=== PATIENT | male | born 1955 | race Caucasian/White ===

== ENCOUNTER → 2017-03-25 | Outpatient (CLI) | payer BC ==
[~2017-03-25] MED LIST: ASPIR 8181 MG PO; CIPROFLOXACIN500 M1 PO; CO Q-10100 MG PO; CRESTOR10 MG PO; EFFIENT10 MG PO; FLAGYL500 MG PO; HYDROCHLOROTH12.5 M1 PO; LEVOTHYROXIN0.137 M1 PO; NITROGLYCERIN0.4 MG SUBLING; VITAMIN D1000 UNI1 PO; ZOFRAN ODT8 MG PO
--- NOTE | ~2017-03-25 | 2DMMODE ---
[facility] [email or web address] [place] [address] 2 D/M-MODE ECHOCARDIOGRAM Name: AMBER JOHNSON Room #: [facility]#: [id number] Admission: 03/25/17 Attend Phys: Melvin Simon MD Discharge: Date of : 59 Date of Service: 03/25/17 1553 Report #: [id number] THIS REPORT FOR: //name// APPROVED REPORT Study performed: 03/25/2017 15:22:57 EXAM: Comprehensive 2D, Doppler, and color-flow Echocardiogram Patient Location: Out-Patient Blood Pressure: 128/77 mmHg HR: 60 bpm Rhythm: NSR Other Information Study Quality: Adequate Indications CAD Hx: [place], stent, HTN, HLP 2D Dimensions RVDd: 39.41 mm LVEF(%): 69.86 (>50%) IVSd: 9.89 (7-11mm) LVOT Diam: 21.14 (18-24mm) LVDd: 38.72 mm PWd: 9.06 (7-11mm) Ascending Ao: 27.26 (22-36mm) LVDs: 23.69 (25-40mm) Aortic Root: 30.85 mm Mendoza's LVEF: 69.86 % Volumes Left Atrial Volume (Systole) Single Plane 4CH: 46.42 mL Single Plane 2CH: 63.94 mL Aortic Valve AoV Peak Andrew.: 1.82 m/s AO Peak Gr.: 13.21 mmHg LVOT Max P.38 mmHg LVOT Max V: 1.45 m/s YAMINI Vmax: 2.79 cm2 Mitral Valve E/A Ratio: 1.3 MV Decel. Time: 206.77 ms [facility] [address] [place] [address] 2 D/M-MODE ECHOCARDIOGRAM Name: AMBER JOHNSON Room #: [facility]#: [id number] Admission: 03/25/17 Attend Phys: Melvin Simon MD Discharge: Date of : 59 Date of Service: 03/25/17 1553 Report #: [id number] MV E Max Andrew.: 0.99 m/s MV A Andrew.: 0.77 m/s MV PHT: 59.96 ms IVRT: 59.98 ms Pulmonary Valve PV Peak Andrew.: 1.08 m/s PV Peak Gr.: 4.65 mmHg Pulmonary Vein P Vein S: 68.3 m/s P Vein A: 30.42 m/s P Vein D: 55.4 m/s P Vein A Dur.: 143.0 msec Tricuspid Valve RAP Estimate: 5.00 mmHg Left Ventricle The left ventricle is normal size. There is normal LV segmental wall motion. There is normal left ventricular wall thickness. The left ventricular systolic function is normal. LVEF is 60%. The left ventricular diastolic function is normal. Right Ventricle The right ventricle is normal size. The right ventricular systolic function is normal. Atria The left atrium size is normal. The right atrium size is normal. Aortic Valve The Aortic valve is mildly sclerotic. Trace aortic regurgitation. There is no aortic valvular stenosis. Mitral Valve The mitral valve is normal in structure. Mild mitral annular calcification. Trace mitral regurgitation. No evidence of mitral valve stenosis. Tricuspid Valve The tricuspid valve is normal in structure. There is no tricuspid valve regurgitation noted. Pulmonic Valve The pulmonary valve is normal in structure. There is no pulmonic valvular regurgitation. [facility] [email or web address] [address] 2 D/M-MODE ECHOCARDIOGRAM Name: AMBER JOHNSON Room #: [facility]#: [id number] Admission: 03/25/17 Attend Phys: Melvin Simon MD Discharge: Date of : 59 Date of Service: 03/25/17 1553 Report #: [id number] Great Vessels The aortic root is normal in size. The ascending aorta is normal in size. IVC is normal in size and collapses >50% with inspiration. Pericardium There is no pericardial effusion. <Conclusion> The left ventricle is normal size. The left ventricular systolic function is normal. The right ventricle is normal size. The left atrium size is normal. The right atrium size is normal. There is no aortic valvular stenosis. The mitral valve is normal in structure. Mild mitral annular calcification. Trace mitral regurgitation. <ELECTRONICALLY SIGNED> By: Melvin Simon MD 03/25/17 1553 1553 1553 Melvin Simon MD /INF
== END ==
LOC: CV 02-07 07:03
DX: I25.10 Atherosclerotic heart disease of native coronary artery without angina pectoris (principal)

== ENCOUNTER → 2019-07-09 | Outpatient (CLI) | payer BC ==
--- NOTE | 2019-07-09 11:23 | 2DMMODE ---
[facility] [place] [address] 2 D/M-MODE ECHOCARDIOGRAM Name: AMBER JOHNSON Room #: [facility]#: [id number] Admission: 07/09/19 Attend Phys: Melvin Simon MD Discharge: Date of : 59 Date of Service: 07/09/19 1122 Report #: [id number] THIS REPORT FOR: //name// APPROVED REPORT Study performed: 07/09/2019 10:15:02 EXAM: Comprehensive 2D, Doppler, and color-flow Echocardiogram Patient Location: Out-Patient Status: routine BSA: 2.20 HR: 53 bpm BP: 128/72 mmHg Rhythm: NSR Other Information Study Quality: Adequate Indications CAD Hx: [place], stents, HTN, HLP. 2D Dimensions RVDd: 41.24 mm IVSd: 11.17 (7-11mm) LVOT Diam: 20.79 (18-24mm) LVDd: 51.95 mm PWd: 8.41 (7-11mm) Ascending Ao: 30.76 (22-36mm) LVDs: 35.20 (25-40mm) Aortic Root: 31.44 mm Volumes Left Atrial Volume (Systole) Single Plane 4CH: 47.68 mL Single Plane 2CH: 67.68 mL LA ESV Index: 28.00 mL/m2 Aortic Valve AoV Peak Andrew.: 1.84 m/s AO Peak Gr.: 13.61 mmHg LVOT Max P.68 mmHg AO Mean Gr.: 7.70 mmHg AO V2 Mean: 1.32 m/s LVOT Max V: 1.56 m/s AO V2 VTI: 40.24 cm YAMINI Vmax: 2.86 cm2 Mitral Valve [facility] [address] [place] [address] 2 D/M-MODE ECHOCARDIOGRAM Name: AMBER JOHNSON Room #: [facility]#: [id number] Admission: 07/09/19 Attend Phys: Melvin Simon MD Discharge: Date of : 59 Date of Service: 07/09/19 1122 Report #: [id number] E/A Ratio: 1.6 MV Decel. Time: 193.43 ms MV E Max Andrew.: 1.07 m/s MV A Andrew.: 0.69 m/s MV PHT: 56.09 ms IVRT: 72.66 ms Pulmonary Valve PV Peak Andrew.: 0.98 m/s PV Peak Gr.: 3.86 mmHg Pulmonary Vein P Vein S: 0.78 m/s P Vein A: 0.28 m/s P Vein D: 0.67 m/s P Vein A Dur.: 129.2 msec P Vein S/D Ratio: 1.16 Tricuspid Valve TR Peak Andrew.: 2.25 m/s RAP Estimate: 5.00 mmHg TR Peak Gr.: 20.25 mmHg PA Pressure: 25.00 mmHg Left Ventricle The left ventricle is normal size. There is normal LV segmental wall motion. There is normal left ventricular wall thickness. Left ventricular systolic function is normal. LVEF is 60%. Right Ventricle The right ventricle is normal size. The right ventricular systolic function is normal. Atria The left atrium size is normal. The right atrium size is normal. Aortic Valve Aortic valve is trileaflet. Trace aortic regurgitation. There is no aortic valvular stenosis. Mitral Valve The mitral valve is normal in structure. Mild mitral annular calcification. Mild mitral regurgitation. No evidence of mitral valve stenosis. Tricuspid Valve The tricuspid valve is normal in structure. Trace tricuspid regurgitation. Estimated PAP is 25mmHg. [address] [address] 2 D/M-MODE ECHOCARDIOGRAM Name: AMBER JOHNSON Room #: [facility]#: [id number] Admission: 07/09/19 Attend Phys: Melvin Simon MD Discharge: Date of : 59 Date of Service: 07/09/19 1122 Report #: [id number] Pulmonic Valve The pulmonary valve is normal in structure. There is no pulmonic valvular regurgitation. Great Vessels The aortic root is normal in size. The ascending aorta is normal in size. IVC is normal in size and collapses >50% with inspiration. Pericardium There is no pericardial effusion. <Conclusion> The left ventricle is normal size. There is normal left ventricular wall thickness. Left ventricular systolic function is normal. The right ventricle is normal size. The left atrium size is normal. Trace aortic regurgitation. Mild mitral annular calcification. Mild mitral regurgitation. Trace tricuspid regurgitation. Estimated PAP is 25mmHg. <ELECTRONICALLY SIGNED> By: Melvin Simon MD 07/09/19 1122 21 21 Melvin Simon MD /INF
--- NOTE | 2019-07-09 11:48 | EXE ---
[facility] [place] [place] [address] STRESS ECHOCARDIOGRAM Name: AMBER JOHNSON Room #: REG [facility]#: [id number] Admission: 07/09/19 Attend Phys: Melvin Simon MD Discharge: Date of : 59 Date of Service: 07/09/19 1148 Report #: [id number] THIS REPORT FOR: //name// APPROVED REPORT Study performed: 07/09/2019 10:59:29 Exam: Stress Echocardiogram Indication: CAD Patient Location: Out-Patient Stress Nurse: Jes Mac RN Status: routine Ht: 5 ft 9 in HR: 54 bpm BP: 128/72 mmHg Rhythm: NSR Medical History Medical History: CAD s/p OR, stents Allergies: Sulfa Cardiac Risk Factors: HTN, Hyperlipidemia Procedure The patient underwent an Exercise Stress Test using the Harvinder Protocol. Blood pressure, heart rate, and EKG were monitored. An Echocardiogram was performed by vibration technician in four stages in quad fashion. At peak stress, four selected images were obtained and placed side by side with resting images for comparison. Stress Test Details Stress Test: Exercise stress testing was performed using a Harvinder protocol. HR Resting HR: 54 bpm Max Heart Rate (APMHR): 158 bpm Max HR Achieved: 162 bpm Target HR (85% APMHR): 134 bpm % of APMHR: 102 Recovery HR: 74 bpm HR response to stress: Normal HR response to stress BP Resting BP: 128/72 mmHg Max BP: 165/65 mmHg Recovery BP: 140/65 mmHg BP response to stress: Normal blood pressure response to stress. [facility] [address] [place] [address] STRESS ECHOCARDIOGRAM Name: AMBER JOHNSON Room #: REG [facility]#: [id number] Admission: 07/09/19 Attend Phys: Melvin Simon MD Discharge: Date of : 59 Date of Service: 07/09/19 1148 Report #: [id number] ECG Resting ECG: Sinus Rhythm Stress ECG: Sinus Rhythm, nonspecific ST-T abnormalities ST Change: Non-ischemic Clinical Reason for Termination: Completed protocol, fatigue Exercise duration: 7 min 8 sec Highest Stage Achieved: Stage 3: 3.4 mph at 14% grade. Exercise capacity: 9.8 METs Pre-Stress Echo The resting Echocardiogram showed normal left ventricular contractility with an estimated Ejection Fraction of about 60%. The resting echocardiogram demonstrated normal wall motion in all wall segments. No significant valvular abnormalities noted. Normal wall motion in all segments on baseline images. Post-Stress Echo The stress Echocardiogram showed normal left ventricular contractility with an estimated Ejection Fraction of about 65-70%. Normal augmentation of wall motion in all segments on post stress images. Clinical No clinical or ECG evidence for ischemia. Conclusion Clinical Response: Non-ischemic Exercise Capacity: Average Stress ECG Response: Non-ischemic Stress Echo Images: Non-ischemic The left ventricle is normal in size and wall thickness in both the rest and stress images. Other Information Study Quality: Adequate <Conclusion> The left ventricle is normal in size and wall thickness in both the rest and stress images. <ELECTRONICALLY SIGNED> By: Melvin Simon MD 07/09/19 1148 1148 1148 Melvin Simon MD /INF
== END ==
LOC: CV 05-18 08:48
DX: I34.0 Nonrheumatic mitral (valve) insufficiency (principal); I25.10 Atherosclerotic heart disease of native coronary artery without angina pectoris; I10 Essential (primary) hypertension; E78.5 Hyperlipidemia, unspecified; I25.2 Old myocardial infarction; Z95.5 Presence of coronary angioplasty implant and graft

== ENCOUNTER → 2020-02-09 | Outpatient (CLI) | payer BC ==
[~2020-02-09] VITALS: Ht 172.7 cm; Wt 106.6 kg
[~2020-02-09] MED LIST changes: +ASPIR-LOW81 MG PO; +CIALIS5 MG PO; +CO Q-10 100 MG1 EACH PO; -CO Q-10100 MG PO; -CRESTOR10 MG PO; +CRESTOR40 MG PO; +DYAZIDE 37.5-21 EACH PO; -LEVOTHYROXIN0.137 M1 PO; +SYNTHROID150 MCG PO
[2020-02-09 12:55] VITALS: BP 111/66
--- NOTE | 2020-02-09 13:14 | NUR ---
Pain Clinic Assessment: 1. History of Osteoarthritis: Left Lower Extremity Right Lower Extremity History of Rheumatoid Arthritis: Not Applicable 2. Height: 5 ft. 8 in. 172.7 cm. Weight: 235.0 lb. oz. 106.596 kg. Patient's BMI: 35.7 3. Vital Signs: BP: 111/66 Pulse: 75 Resp: 16 Temp: 02 Sat: 99 ECG Mon: 4. Pain Intensity: 6 5. Fall Risk: Dizziness: Needs help standing or walking: Fallen in the last 3 months: Fall risk comments: 6. Patient on Blood Thinner: None 7. History of Hypertension: Y 8. Opioid Therapy greater than 6 weeks: N Opiate Contract Signed: 9. Risk Assessment Tool Provided: 10. Functional Assessment Tool: 11. Recreational Drug Use: Never Drug Type: Tobacco Use: Former Smoker Tobacco Type: Cigarettes Amount or Packs/day: 1 How Many Years: 10 Alcohol Use: No Frequency: Quant:
--- NOTE | 2020-02-10 13:56 | HPC ---
[facility] [place] [address] PAIN MANAGEMENT CONSULTATION Name: AMBER JOHNSON Room #: REG [facility].#: [id number] Admission: 02/09/20 Attend Phys: Jamie Caceres DO Discharge: Date of : 59 Report #: [id number] THIS REPORT FOR: cc: Kaleb Cortez MD, Neal A. MD Johnson, James E. DO ~ DATE OF SERVICE: 02/09/2020 CHIEF COMPLAINT: Left lateral knee pain. HISTORY OF PRESENT ILLNESS: As you know, the patient is an extremely pleasant 64-year-old male referred to our clinic for left lateral knee pain. The patient states he has been in his normal state of health when he began to experience left lateral knee pain. He denies injury or trauma that may have led to symptom development. He has had a history of chronic knee osteoarthritis with intermittent treatments to address his left knee symptoms. He is able to localize the pain directly over the tibial plateau on the left, just lateral to the patellar ligament. He indicates that he may have exacerbated his symptoms while doing work on his new home where he has been climbing ladders and scaffold consistently during this process. He does not believe he has suffered any injury or trauma other than just a possible overuse. He has been referred to our service to discuss treatment options for this left lateral knee pain. The patient indicates today his pain is intermittent and brief. He describes the pain as stabbing. He places current pain score at 2/10, daily average when it is exacerbated at 8/10, worst pain has been 8/10. The patient states his pain is intermittent and random. He is unable to elicit pain today, but states that he works consistently at home, climbing ladders and scaffold his symptoms will occur. He has trialled ice, Voltaren gel and ibuprofen, but this provided no improvement. He has been referred to our service to discuss treatment options. PAST MEDICAL HISTORY: 1. Hypertension. 2. Coronary artery disease. 3. Hypothyroidism. 4. Degenerative joint disease. 5. Osteoarthritis. PAST SURGICAL HISTORY: 1. Cataract surgery. 2. Surgery on the right fifth digit. 3. Tonsillectomy and adenoidectomy. 4. Coronary artery stenting x2. [facility] [address] [place] [address] PAIN MANAGEMENT CONSULTATION Name: AMBER JOHNSON Room #: REG [facility].#: [id number] Admission: 02/09/20 Attend Phys: Jamie Caceres DO Discharge: Date of : 59 Report #: [id number] SOCIAL HISTORY: The patient denies tobacco, alcohol, IV or illicit drug use. 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 He is working, not receiving workmen's compensation or is trying to obtain disability benefits. He is accompanied by his who is present in room today. REVIEW OF SYSTEMS: 1. Positive for wearing corrective eyewear, cataracts, hearing loss with tinnitus, coronary artery disease, status post percutaneous stenting. 2. Frequent urination. 3. Nocturia. 4. Numbness and tingling sensations. 5. Hypothyroidism. 6. Left lateral knee pain. All other review of systems negative per 12-point review of systems other than those listed in the history of present illness. Pain impact score is 13 of 70 indicating mild interference of daily activities secondary to pain. ALLERGIES: SULFA AND TREE NUTS. CURRENT MEDICATIONS: Cialis 5 mg p.r.n., triamterene/hydrochlorothiazide 37.5/25 once a day, aspirin 81 mg per day, Coenzyme Q10 200 mg once a day, rosuvastatin 40 mg per day, and levothyroxine 150 mcg per day. IMAGING STUDIES: No imaging available. PHYSICAL EXAMINATION: VITAL SIGNS: Blood pressure 111/66, pulse 75, respiratory rate 16 and unlabored, and the patient is 99% on room air. Height 5 feet 8 inches tall, weight 235 pounds, BMI calculated 35.7. GENERAL: Well-developed, well-nourished, well-hydrated, 64-year-old male. He appears his stated age, placing current pain score 2/10. HEENT: Normocephalic and atraumatic. Pupils are equal, round, and reactive to light. Extraocular muscles are intact. Sclerae nonicteric without injection. NEUROLOGIC: Cranial nerves 2-12 grossly intact. Speech is fluent. The patient deemed an excellent historian. LUNGS: Clear, no wheeze, rhonchi or rales. CARDIOVASCULAR: Regular. No appreciable gallop, no rub. ABDOMEN: Soft, nontender, and nondistended. Normal active bowel sounds. EXTREMITIES: Show no clubbing, no cyanosis, no edema. MUSCULOSKELETAL: The patient does have palpatory tenderness over the tibial plateau on the left, just lateral to the patellar ligament. Active and passive range of motion of the knee is met with no laxity. There appears to be intact medial collateral and lateral collateral ligaments. Drawer tests are negative. Weightbearing with rotation causes increased pain over the lateral portion of the left knee just lateral to the patellar ligament similar to the area of [facility] [address] [place] [address] PAIN MANAGEMENT CONSULTATION Name: AMBER JOHNSON Room #: REG [facility]#: [id number] Admission: 02/09/20 Attend Phys: Jamie Caceres DO Discharge: Date of : 59 Report #: [id number] palpation. ASSESSMENT: 1. Left knee pain. 2. Left knee osteoarthritis. 3. Possible meniscal injury. PLAN: 1. Based on today's physical exam and history the patient has provided, the description the patient uses in regard to pain as well as location of symptoms, it would appear that the patient is experiencing meniscal pain likely due to progressive arthritic changes. He does have a varus type of positioning and this does change the angulation that may be contributing to the patient's overall symptoms. The patient has had issues with this knee in the past and has sought evaluation through Orthopedics, who have provided a topical agent treatment as well as intra-articular injections. He has done well with the intra-articular injections with topical agents have been less than effective. He has been taking [id number] nonsteroidal anti-inflammatories and applying ice with minimal benefit. We discussed with the patient treatment options given his distribution of symptoms and his current pain generator. The following was discussed with the patient today. We discussed physical therapy, stretching exercises and mobility techniques to help with left knee pain. We discussed adjusting medical management to treat his intermittent knee pain along with reduction in the activities that are exacerbating symptoms such as climbing ladders and scaffold. We discussed intra-articular knee injection to address this lateral knee discomfort. We also discussed further imaging via MRI and then moving forward with a consultation from a surgical standpoint if necessary. After reviewing the risks and benefits of all proposed treatment options, the patient chose to begin with conservative medication management. 2. The patient and I discussed at length the possibility of utilizing nonsteroidal anti-inflammatory to help with his pain. We discussed both topical and oral agents. The patient chose to begin with topical agent. We recommend he apply the topical agent up to 3 times a day. This has excellent anti-inflammatory effects and we are hopeful the patient will see good improvement. He has this available to him and I have advised him to use it up to 3 times a day. If no improvement in symptoms, we would recommend then either moving towards oral medications, which may have some systemic side effects that we will have to discuss or possibly moving forward with intra-articular injections. The patient has decided that he will trial the topical agents. If these are ineffective, then move forward with an intra-articular knee injection. 3. We will be available to see the patient back in followup visit if the topical agents are ineffective at controlling his symptoms. We recommend he use those agents up to 3 times a day and consistently throughout the next couple of days to determine if there is efficacy. If there is no improvement in symptoms [facility] [address] [place] [address] PAIN MANAGEMENT CONSULTATION Name: AMBER JOHNSON Room #: REG [facility]#: [id number] Admission: 02/09/20 Attend Phys: Jamie Caceres DO Discharge: Date of : 59 Report #: [id number] and he continues to seek a pain generation, we would recommend an intra-articular knee injection to be done on the lateral side of the left knee. He is amenable. We will be available to see him back in followup when he is prepared assuming his more conservative treatment is ineffective. 4. We wish to thank the referring physician for the opportunity to see the patient in consultation. We will keep you apprised of his response to treatment as we address his left lateral knee pain. Again, we wish to thank you for the opportunity to see the patient in consultation. <ELECTRONICALLY SIGNED> By: Jamie Caceres DO 02/10/20 1356 1219 1247 Jamie Caceres DO /nt
== END ==
LOC: PAIN 06:45
DX: M17.12 Unilateral primary osteoarthritis, left knee (principal); Z88.2 Allergy status to sulfonamides; Z91.010 Allergy to peanuts; Z91.048 Other nonmedicinal substance allergy status; Z79.899 Other long term (current) drug therapy

== ENCOUNTER → 2021-02-06 | Outpatient (CLI) | payer BC | LOC: SJCVCIMAG 07:30 | PROVIDERS: ATTEND Internal Medicine Cardiovascular Disease | DX: I49.3 Ventricular premature depolarization (principal); I21.4 Non-ST elevation (NSTEMI) myocardial infarction; I25.10 Atherosclerotic heart disease of native coronary artery without angina pectoris; I10 Essential (primary) hypertension; E78.5 Hyperlipidemia, unspecified; Z98.61 Coronary angioplasty status; Z88.8 Allergy status to other drugs, medicaments and biological substances; Z79.899 Other long term (current) drug therapy ==